=== PATIENT | female | born 1950 | race Caucasian/White ===

== ENCOUNTER 2021-11-16 20:49 | Inpatient (IN) | payer OTHER ==
[~2021-11-16] VITALS: Ht 167.6 cm; Wt 72.6 kg
[2021-11-16 20:49] VITALS: BP_SYST 98
--- NOTE | 2021-11-16 20:49 | NUR ---
Pt arrives via ALS, placed to ER bed 03, to gown, to monitor technician.
--- NOTE | 2021-11-16 20:50 | NUR ---
Pt from home with c/o SOB x 30 minutes FAN MAIL EDITOR with lethargy x 2 days. Pt pale in appearance, AAOx3, but drowsy. Pt states that she took her prescribed nightly dose of Gabapentin. Pt on home O2 at 2LPM/NC. VSS with paced rhythm per beside phototypesetting equipment monitor. Denies c/o C/P. Arrives with 18 GA PIV to LAC, placed per ALS FAN MAIL EDITOR.
--- NOTE | 2021-11-16 20:52 | NUR ---
Dr. Barber at bedside to assess pt.
--- NOTE | 2021-11-16 21:05 | NUR ---
Lab at bedside.
--- NOTE | 2021-11-16 21:10 | NUR ---
Pt to CT via stretcher in stable condition.
--- NOTE | 2021-11-16 21:20 | NUR ---
Pt returns from CT. VSS, drowsy but easily awakens.
[2021-11-16 21:32] LABS: BASOPHILS % (AUTO) 0.7 % (0.0-2.0); EOSINOPHILS # (AUTO) 0.2 K/uL (0.0-0.4); EOSINOPHILS % (AUTO) 3.2 % (0.0-4.0); HEMATOCRIT 28.5 % (36-48); LYMPHOCYTES # (AUTO) 0.6 K/uL (1.0-5.5); LYMPHOCYTES % (AUTO) 8.7 % (20.5-51.5); MEAN CORPUSCULAR HEMOGLOBIN 26 pg (27-31); MEAN CORPUSCULAR HGB CONC 31 % (32-36); MEAN CORPUSCULAR VOLUME 82 fL (79.0-98.0); MONOCYTES # (AUTO) 0.7 K/uL (0.0-1.0); MONOCYTES % (AUTO) 10.4 % (1.7-9.3); NEUTROPHILS # (AUTO) 4.9 K/uL (1.8-7.7); PLATELET COUNT (AUTO) 303 K/uL (130-430); RED BLOOD CELL COUNT(AUTO) 3.47 MIL/uL (4.2-6.2); RED CELL DISTRIBUTION WIDTH 18.6 % (9.0-15.0); WHITE BLOOD COUNT (AUTO) 6.4 K/uL (4.8-10.8)
[2021-11-16 21:42] LABS: ANION GAP 5 (5-15); CALCIUM 9.7 mg/dL (8.4-11.0); CHLORIDE 105 mmol/L (98-107); CREATININE 2.01 mg/dL (0.55-1.30); GLUCOSE 127 mg/dL (70-99); POTASSIUM 4.9 mmol/L (3.5-5.1); SODIUM SERUM 140 mmol/L (136-145); UREA NITROGEN, BLOOD 57 mg/dL (8-21)
[2021-11-16 21:48] LABS: ACETAMINOPHEN 9 ug/mL (1-30); ALANINE AMINOTRANSFERASE 29 U/L (12-78); ALBUMIN 2.8 g/dL (3.4-4.8); ASPARTATE AMINOTRANSFERASE 30 U/L (10-37); TOTAL BILIRUBIN 0.7 mg/dL (0.0-1.0)
[2021-11-16 21:53] LABS: ACETONE, SERUM NEGATIVE (NEGATIVE); ALCOHOL, BLOOD < 3 mg/dL (<10); C-REACTIVE PROTEIN QUANT 2.8 mg/dL (0-0.5)
--- NOTE | 2021-11-16 22:33 | NUR ---
RT at bedside to perform ABG.
[2021-11-17 00:30] LABS: BARBITURATE, URINE NEGATIVE (NEG <=200); BENZODIAZEPINE, URINE NEGATIVE (NEG <=150); CANNABINOID, URINE NEGATIVE (NEG <=50); COCAINE, URINE NEGATIVE (NEG <=150); METHAMPHETAMINES SCREEN,URINE NEGATIVE (NEG <=500); OPIATE, URINE NEGATIVE (NEG <=100); PHENCYCLIDINE SCREEN,URINE NEGATIVE (NEG <=25); UR TRICYCLIC ANTIDEPRESSANTS NEGATIVE (NEG <=300); URINE AMPHETAMINE NEGATIVE (NEG <=500); URINE METHADONE NEGATIVE (NEG <=200); URINE OXYCODONE SCREEN NEGATIVE (NEG <=100); URINE PROPOXYPHENE SCREEN NEGATIVE (NEG <=300)
[2021-11-17 00:36] LABS: BILIRUBIN,URINE NEGATIVE (NEGATIVE); BLOOD, URINE 3+ (NEGATIVE); CLARITY/URINE CLEAR (CLEAR); COLOR,URINE YELLOW (YELLOW); GLUCOSE,URINE NEGATIVE (NEGATIVE); KETONES,URINE NEGATIVE (NEGATIVE); LEUKOCYTE ESTERASE ,URINE 2+ (NEGATIVE); NITRITE, URINE NEGATIVE (NEGATIVE); PH,URINE 5.5 (5.0-8.0); PROTEIN URINE 2+ (NEGATIVE)
[2021-11-17 00:37] LABS: UROBILINOGEN,URINE 0.2 (0.2-1.0)
--- NOTE | 2021-11-17 00:45 | NUR ---
Pt noted to be bobbing head ~ 30 seconds while falling asleep. VSS, SPO2 98% on O2 at 2 LPM/NC. Dr. Carlson called to bedside. Further sepsis workup indicated. Blood Cx x 2 obtained and sent to lab prior to administering antibiotics.
--- NOTE | 2021-11-17 00:50 | NUR ---
Lab at bedside. Pt c/o nausea. Pt medicated with Zofran 4 mg IVP per HARDIK Carlson.
[2021-11-17] MEDS ORDERED: ONDANSETRON HCL 4 MG/2 ML VIAL ONE (01:02)
[2021-11-17 01:03] LABS: BACTERIA,URINE MODERATE /HPF (None Seen); MUCUS,URINE None Seen /LPF (None Seen); RBC,URINE 50-80 /HPF (0-3); WBC,URINE >100 /HPF (0-3)
[2021-11-17] MEDS ORDERED: ONDANSETRON HCL 4 MG/2 ML VIAL IVP ONE (01:15)
--- NOTE | 2021-11-17 01:29 | NUR ---
Pt actively vomiting. Dr. Carlson notified.
[2021-11-17] MEDS ORDERED: cefTRIAXone 1 GM IVPB PREMIX 50 ML IV ONE ×2 (01:30→21:34)
--- NOTE | 2021-11-17 02:30 | NUR ---
Pt resting quietly with occasional head bobbing motion. Pt easily awakens, AAOx3, denies c/o pain or discomfort. VSS, NAD.
--- NOTE | 2021-11-17 03:05 | NUR ---
Admit bed requested Patient will be admitted to care of Dr. Julio C Botello. Admitted to ICU unit. Diagnosis Sepsis, UTI, CHF Inpatient (Yes or No) Yes Observation (Yes or No) No Orientation concerns or request close to nursing station (Yes or No) Yes Covid Status Neg On vent or bipap No Isolation requirements No Needs a sitter No From Home (Yes or if No enter name of facility) Yes Requires Dialysis (Yes or No) No Med Rec Completed (Yes of No) Yes
--- NOTE | 2021-11-17 03:08 | NUR ---
Called ICU to notify of pt admit status. Not enough ICU staff for pt transfer at this time. thermostatic controls supervisor notified.
--- NOTE | 2021-11-17 04:00 | NUR ---
# 16 FR Oconnell catheter with use of sterile technique. Immediate return of 10 cc straw colored and turbid urine noted. Bedside drainage bag placed below level of bladder. Urine sample collected and sent to lab. Pt tolerated procedure fair. F/C inserted for strict U/O monitoring and ICU status.
--- NOTE | 2021-11-17 05:15 | NUR ---
Pt actively vomiting. Dr. Carlson made aware and at bedside to assess pt. Pt to be medicated with Reglan 10 mg IVP.
[2021-11-17] MEDS ORDERED: METOCLOPRAMIDE HCL 10 MG/2 ML VIAL ONE (05:23)
[2021-11-17] MEDS ORDERED: METOCLOPRAMIDE HCL 10 MG/2 ML VIAL IVP ONE (05:30)
--- NOTE | 2021-11-17 05:40 | NUR ---
Dr. Harman at bedside to assess pt.
[2021-11-17] MEDS ORDERED: NACL 0.9% 1,000 ML IV SCH (06:00)
--- NOTE | 2021-11-17 06:30 | NUR ---
Dr. Liang on phone with Dr. Harman.
--- NOTE | 2021-11-17 06:45 | NUR ---
Pt placed on BiPAP per RT. Settings: 03/28, rate 24.
--- NOTE | 2021-11-17 07:23 | NUR ---
Pt report given to oncoming shift.
--- NOTE | 2021-11-17 07:23 | NUR ---
rec rprt from [facility], assess pt bed 3, pt in bed, restless she is awake and alert. has bipap on sat max 97, will continue to monitor.
[2021-11-17] MEDS ORDERED: SPIR25TA6 PO (07:39)
[2021-11-17] MEDS ORDERED: BACL10TA PO (07:39)
[2021-11-17] MEDS ORDERED: TAMS-11 PO (07:39)
[2021-11-17] MEDS ORDERED: FURO-150 PO (07:39)
[2021-11-17] MEDS ORDERED: PRO40 PO (07:39)
[2021-11-17] MEDS ORDERED: LIP20 PO (07:39)
[2021-11-17] MEDS ORDERED: NEU300 PO (07:39)
[2021-11-17] MEDS ORDERED: AMIO100T4 PO (07:39)
[2021-11-17] MEDS ORDERED: METO25TA3 PO (07:39)
[2021-11-17] MEDS ORDERED: MECL-109 PO (07:39)
[2021-11-17] MEDS ORDERED: CHOL500052 PO (07:39)
[2021-11-17] MEDS ORDERED: CALC3.8S NS (07:39)
--- NOTE | 2021-11-17 07:39 | NUR ---
Medication reconciliation completed with information provided by pt. Any prior medication reconciliation on file was reviewed and corrected.
--- NOTE | 2021-11-17 07:40 | NUR ---
PT IS SCRATCHING BACK, REDNESS AND IRRITATION NOTED. CALL PLACED TO DR. SEARS
[2021-11-17] MEDS: DIPHENHYDRAMINE INJ 50 MG/ML VIAL IVP PRN (08:00)
[2021-11-17] MEDS ORDERED: LORazepam 2 MG/ML VIAL IVP PRN (09:45)
[2021-11-17] MEDS ORDERED: ONDANSETRON HCL 4 MG/2 ML VIAL IVP PRN (09:45)
[2021-11-17 10:26] VITALS: BP_SYST 105
--- NOTE | 2021-11-17 11:00 | NUR ---
DR. SEARS CALLED FOR DOWNGRADE TO TELE
--- NOTE | 2021-11-17 11:09 | NUR ---
PT PULLING OFF BIPAP, PER ER DR. EVANS OK TO CALL RT FOR DOWN GRADE 02. PT PLACED ON NC@3LPM, O2SAT 97%. PT TOLERATING WELL
--- NOTE | 2021-11-17 11:30 | NUR ---
Admit bed requested Patient will be admitted to care of . Admitted to TELE unit. Diagnosis UTI, CHF, SEPSIS Inpatient (Yes or No) YES Observation (Yes or No) NO Orientation concerns or request close to nursing station (Yes or No) YES Covid Status NEGATIVE On vent or bipap NO Isolation requirements NO Needs a sitter NO From Home (Yes or if No enter name of facility) HOME Requires Dialysis (Yes or No) NO Med Rec Completed (Yes of No) YES
--- NOTE | 2021-11-17 11:30 | NUR ---
[place] of care received, pt resting in bed, pt on 3L NC with O2 reading 96%, respirations even and unlabored, cap refill <3.
--- NOTE | 2021-11-17 11:30 | NUR ---
Note zully in EDM - 11/17/21 at 1209 by [email or web address] Admit bed requested Patient will be admitted to care of . Admitted to [] unit. Diagnosis [] Inpatient (Yes or No) [] Observation (Yes or No) [] Orientation concerns or request close to nursing station (Yes or No) [] Covid Status [] On vent or bipap [] Isolation requirements [] Needs a sitter [] From Home (Yes or if No enter name of facility) [] Requires Dialysis (Yes or No) [] Med Rec Completed (Yes of No) []
[2021-11-17] MEDS: LORazepam 2 MG/ML VIAL IVP PRN ×2 (11:33→22:25)
--- NOTE | 2021-11-17 11:40 | NUR ---
Admit bed requested Patient will be admitted to care of . Admitted to TELE unit. Diagnosis SEPSIS,UTI,CHF Inpatient (Yes or No) YES Observation (Yes or No) NO Orientation concerns or request close to nursing station (Yes or No) YES Covid Status NEG On vent or bipap NO Isolation requirements NO Needs a sitter NO From Home (Yes or if No enter name of facility) HOME Requires Dialysis (Yes or No) NO Med Rec Completed (Yes of No) YES
--- NOTE | 2021-11-17 11:43 | NUR ---
ECHO AT THE BEDSIDE
[2021-11-17] MEDS: ALBUTEROL SULFATE 0.083% 2.5 MG/3 ML VIAL.NEB INH SCH ×4 (12:09→23:26)
[2021-11-17] MEDS: IPRATROPIUM BROM 0.5 MG/2.5 ML VIAL.NEB (ATROVENT) INH SCH ×4 (12:09→23:26)
--- NOTE | 2021-11-17 12:30 | NUR ---
Patient will be admitted to care of Dr Thayer . Admitted to Tele unit. Will go to room 104B . Belongings list completed. Complete and up to date summary report printed. SBAR report to be given at bedside with opportunity for questions.
--- NOTE | 2021-11-17 13:23 | NUR ---
CONSULTATION PAGED REASON FOR CONSULTATION:CHF,SOB WAS CONSULT CALLED?Y PERSON WHO WAS NOTIFIED:VALERIANO CONSULTING PHYSICIAN:RAHUL OWENS [employer] DEPUTY SHERIFF SPECIALTY:INFECTIOUS DISEASE CIVIL DIVISION DEPUTY SHERIFF PHONE NUMBER:[phone] REQUESTING PHYSICIAN:LIZANDRO GARZON FACESHEET FAVED OVER
--- NOTE | 2021-11-17 13:31 | NUR ---
ADMISSION NOTE Received patient from ER via gurney. Patient admitted with diagnosis of sepsis and UTI . Patient oriented to hospital routine, call light, toileting and safety-patient verbalized understanding. Patient is is on 2L NC. Patient is AxO x3, oriented to self, situation and place. Oconnell catheter in place draining yellow urine to gravity. All needs met at this time, and safety checks made. Will continue to monitor.
[2021-11-17 13:46] VITALS: BP_SYST 119
[2021-11-17] MEDS: D5/0.45 NS 1,000 ML IV SCH (14:00)
[2021-11-17] MEDS: HEPARIN SODIUM,PORCINE 5,000 UNITS/ML VIAL SUBCUT SCH ×2 (14:34→22:27)
[2021-11-17 15:12] VITALS: BP_SYST 120
--- NOTE | 2021-11-17 17:01 | NUR ---
PATIENT IS A POOR HISTORIAN While completing patient's admission assessment, patient is revealed to be a poor historian and unable to answer most questions. Attempted to reach out to emergency contact, valeria Saab, for medical history but was unable to reach him.
--- NOTE | 2021-11-17 17:14 | NUR ---
SOFT RESTRAINTS PLACED Per Dr Yoselyn Botello's order, soft mitten bilateral wrist restraints placed. Patient is persistently scratching.
[2021-11-17 17:59] VITALS: BP_SYST 119
--- NOTE | 2021-11-17 18:33 | NUR ---
CLOSING NOTE Patient is resting in bed, soft mitten restraints in place. Patient continues to persistently scratch at her head and back. She has poor concentration and difficulty expressing her needs. Oconnell catheter is in place and draining yellow cloudy urine. IV is patent and running prescribed fluids. All needs met at this time, and safety checks made. Will endorse to cage shift manager nurse.
--- NOTE | 2021-11-17 19:00 | NUR ---
RECEIVED PT IN BE.AOX1, CONFUSED AND RESTLESS.ON 2 L NC.NOT IN RESPIRATORY DISTRESS NOTED. IV L AC G18, PATENT AND INTACT. BILATERAL MITTENS NOTED.BED ALARM ON.BED IN LOWEST POSITION.BEDSIDE TABLE AND CALL LIGHT ARE WITHIN REACH.
[2021-11-17 20:00] VITALS: BP_SYST 123
[2021-11-17] MEDS ORDERED: cefTRIAXone 1 GM in D5W 50 ML IV SCH (21:00)
--- NOTE | 2021-11-17 22:00 | NUR ---
PT IS RESTLESS AND TRYING TO GET OUT OF BED.ATIVAN 1 MG IV GIVEN.
[2021-11-18 00:07] VITALS: BP_SYST 108
[2021-11-18] MEDS: IPRATROPIUM BROM 0.5 MG/2.5 ML VIAL.NEB (ATROVENT) INH SCH ×3 (03:58→11:48)
[2021-11-18] MEDS: ALBUTEROL SULFATE 0.083% 2.5 MG/3 ML VIAL.NEB INH SCH ×3 (03:58→11:48)
--- NOTE | 2021-11-18 05:00 | NUR ---
PT PULLED OUT IV.
--- NOTE | 2021-11-18 05:30 | NUR ---
REINSERTED IV ON L HAND G22, WITH GOOD BLOOD RETURN NOTED, HOOKED IVF.
[2021-11-18] MEDS: D5/0.45 NS 1,000 ML IV SCH (05:42)
[2021-11-18] MEDS: HEPARIN SODIUM,PORCINE 5,000 UNITS/ML VIAL SUBCUT SCH ×2 (05:46→13:36)
[2021-11-18 06:33] LABS: BASOPHILS # (AUTO) 0.1 K/uL (0.0-0.2); BASOPHILS % (AUTO) 0.7 % (0.0-2.0); EOSINOPHILS % (AUTO) 0.2 % (0.0-4.0); HEMATOCRIT 29.7 % (36-48); HEMOGLOBIN 9.1 g/dL (12.0-16.0); LYMPHOCYTES # (AUTO) 0.5 K/uL (1.0-5.5); LYMPHOCYTES % (AUTO) 5.5 % (20.5-51.5); MEAN CORPUSCULAR HEMOGLOBIN 26 pg (27-31); MEAN CORPUSCULAR HGB CONC 31 % (32-36); MEAN CORPUSCULAR VOLUME 83 fL (79.0-98.0); MONOCYTES # (AUTO) 1.4 K/uL (0.0-1.0); MONOCYTES % (AUTO) 14.3 % (1.7-9.3); NEUTROPHILS # (AUTO) 7.7 K/uL (1.8-7.7); NEUTROPHILS % (AUTO) 79.3 % (40.0-70.0); PLATELET COUNT (AUTO) 357 K/uL (130-430); RED BLOOD CELL COUNT(AUTO) 3.57 MIL/uL (4.2-6.2); RED CELL DISTRIBUTION WIDTH 18.8 % (9.0-15.0); WHITE BLOOD COUNT (AUTO) 9.7 K/uL (4.8-10.8)
[2021-11-18 06:59] LABS: ALANINE AMINOTRANSFERASE 104 U/L (12-78); ALBUMIN 2.9 g/dL (3.4-4.8); ANION GAP 17 (5-15); CALCIUM 9.9 mg/dL (8.4-11.0); CHLORIDE 107 mmol/L (98-107); CREATININE 2.59 mg/dL (0.55-1.30); GLUCOSE 91 mg/dL (70-99); PHOSPHORUS 5.1 mg/dL (2.7-4.5); SODIUM SERUM 146 mmol/L (136-145); TOTAL BILIRUBIN 1.2 mg/dL (0.0-1.0); UREA NITROGEN, BLOOD 63 mg/dL (8-21)
[2021-11-18] MEDS: DIPHENHYDRAMINE INJ 50 MG/ML VIAL IVP PRN ×2 (07:16→14:23)
--- NOTE | 2021-11-18 07:30 | NUR ---
OPENING NOTE Patient is in bed resting with eyes closed. Nasal cannula in place on 2L. Oconnell catheter in place draining yellow urine. IV is patent and running prescribed fluids. Patient is calm and no longer scratching at her skin, bilateral mittens are off. All needs met at this time, and safety checks made. Will continue to monitor.
[2021-11-18 08:00] VITALS: BP_SYST 114
--- NOTE | 2021-11-18 08:33 | NUR ---
CRITICAL LAB Lactic acid 7.7. Reported to Dr Botello at 0828. No new orders at this time.
[2021-11-18 08:35] LABS: ASPARTATE AMINOTRANSFERASE 218 U/L (10-37)
[2021-11-18 08:46] LABS: C-REACTIVE PROTEIN QUANT 4.3 mg/dL (0-0.5)
[2021-11-18 09:38] LABS: ERYTHROCYTE SEDIMENTATION RATE 32 MM/HR (0-20)
[2021-11-18] MEDS ORDERED: CARVEDILOL 6.25 MG TABLET (COREG) PO ONE (10:00)
[2021-11-18 10:30] VITALS: BP_SYST 92
--- NOTE | 2021-11-18 11:13 | NUR ---
CONSULTATION PAGED/CALLED Reason for Consultation: [] TRANSAMINITIS Person Who was Notified: [] ROBERT Consulting Physician: [] DR DARLING, A Emu Farm Worker Specialty: [] GI Ordering Physician: [] DR SEARS
--- NOTE | 2021-11-18 11:22 | NUR ---
CONSULTATION PAGED/CALLED Reason for Consultation: [] SEPSIS Person Who was Notified: [] MARKUS Consulting Physician: [] DR MARZENA HAIRSTON Dyer And Washer Specialty: [] ID Ordering Physician: [] DR SEARS
--- NOTE | 2021-11-18 11:23 | NUR ---
CONSULTATION PAGED/CALLED Reason for Consultation: [] JAMES Person Who was Notified: [] MARKUS Consulting Physician: [] DR TAI Manager Army Specialty: [] MARKETING OPERATIONS CONSULTANT Ordering Physician: [] DR SEARS
--- NOTE | 2021-11-18 11:25 | NUR ---
CONSULTATION PAGED/CALLED Reason for Consultation: [] AMS Person Who was Notified: [] DAYANA Consulting Physician: [] DR Jesse HENSLEY Oncology Rep Specialty: [] NEURO Ordering Physician: [] DR Viktor SEARS
[2021-11-18 11:36] VITALS: BP_SYST 121
--- NOTE | 2021-11-18 14:00 | NUR ---
Wound Evaluation: Late note for 11/18/2021 at 1400 secondary to patient care. Wound Consult ordered for Low Musa Score. Patient evaluated for a low Musa score of 9. Patient was awake, alert, confused, and received in a Ria Bed with an Isoflex MARCUS mattress. Patient needs to be turned in bed. Skin assessment: 1. Sacral area: Blanchable redness, present on admission. Recommend: Cleanse involved area with mild soap and water. Pat dry. Apply Hydraguard moisture barrier cream to involved area. Cover site with Sacral foam dressing. Perform site care daily, and as needed for dressing soiling or dislodgment. 2. Left Lower Extremity: Multiple dry black scabs, present on admission. 3. Right Lower Extremity: Multiple dry black scabs, present on admission. Recommend: No dressings needed. Continue to monitor sites every shift. 4. Left heel: Blanchable redness, present on admission. 5. Right heel: Blanchable redness, present on admission. Recommend: Elevate, offload and float bilateral heels with 1 pillow lengthwise under each extremity at all times. Recommend: Reposition patient side to side only every 2 hours with pillow support. Elevate, off-load and float bilateral heels with pillows. Offload pressure areas with pillows for pressure re-distribution. Perform skin care and monitor skin integrity Q shift. Use Hydraguard moisture barrier cream on moisture susceptible areas QID and PRN for soiling. Initiate low air-loss therapy.
[2021-11-18] MEDS ORDERED: EPINEPHrine JECT 0.1 MG/ML SYR IVP ONE (15:00)
[2021-11-18] MEDS ORDERED: DEXTROSE 50% JECT 50 ML DISP.SYRIN IVP ONE (15:00)
[2021-11-18] MEDS ORDERED: CALCIUM CHLORIDE 1 GM/10 ML DISP.SYRIN (14 mEq Ca++/SYR) IVP ONE (15:00)
--- NOTE | 2021-11-18 15:01 | NUR ---
NOTIFIED SISTER RE-CHANGE OF CONDITION UNABLE TO CONTACT THE [facility] WHO IS ON EMERGENCY CONTACT. SISTER MIREILLE CASE WAS NOTIFIED. SPOKE TO SISTER MIREILLE CASE AND MADE AWARE THAT [facility] WAS CALLED BECAUSE PATIENT STOP BREATHING AND NO PULSE RATE, SHE ALSO MADE AWARE THAT THEY ARE STILL DOING THE [facility] TO REVIVE THE PATIENT. DR SALAZAR EMERGENCY ROOM DOCTOR SPOKE TO MIREILLE AND MADE AWARE THAT PATIENT IS NOT DOING GOOD. MIREILLE WILL CALL ROSALINA THE NEPHEW WHO IS ON THE EMERGENCY CONTACT.
--- NOTE | 2021-11-18 15:14 | NUR ---
PATIENT AT 151 PATIENT AT 1511, NOTIFIED SISTER MIREILLE CASE MADE AWARE THAT PATIENT AT 1511. MIREILLE WILL CALL BACK TO GIVE THE MORTUARY.
--- NOTE | 2021-11-18 15:44 | NUR ---
[facility] Spoke to Deisi at [facility]. Reference # [id number]
--- NOTE | 2021-11-18 16:07 | NUR ---
SPOKE TO [facility] Spoke to Anam at [facility] and reported the patient's expiration.
--- NOTE | 2021-11-18 18:26 | NUR ---
1443 [facility] CALLED, [facility]C ACHIEVED @1451. PT INTUBATED 1449, 1503 PT CODED AGAIN. 151. Addendum: 11/18/21 at 1827 by Lizabeth Stafford RT Amended: Links added.
--- NOTE | 2021-11-18 19:49 | NUR ---
FOLLOW UP WITH [facility] [employer] Spoke to Chapito with the [facility]. Confirmed that patient is being picked up tonight, they estimated by 2099.
--- NOTE | 2021-11-18 20:20 | NUR ---
PTS BODY AND PTS BELONGINGS RELEASED TO [facility], [facility]SE [facility] WITNESSED .
[2021-11-18] MEDS ORDERED: CARVEDILOL 6.25 MG TABLET (COREG) PO SCH (21:00)
[2021-11-18] MEDS ORDERED: ATORVASTATIN 20 MG TABLET PO SCH (21:00)
== END 2021-11-18 15:12 | DRG 871 ==
LOC: SED 20:49 → SIC 11-17 02:58 → STU 11-17 11:08
PROVIDERS: ADMIT Preventive Medicine Preventive Medicine/Occupational Environmental Medicine; ATTEND Preventive Medicine Preventive Medicine/Occupational Environmental Medicine
PROC: 5A09357 Assistance with Respiratory Ventilation, Less than 24 Consecutive Hours, Continuous Positive Airway Pressure (ICD-10-PCS; 2021-11-17)
PROC: 5A12012 Performance of Cardiac Output, Single, Manual (ICD-10-PCS; principal; 2021-11-18)
PROC: 0BH17EZ Insertion of Endotracheal Airway into Trachea, Via Natural or Artificial Opening (ICD-10-PCS; 2021-11-18)
DX: A41.9 Sepsis, unspecified organism (principal); G93.41 Metabolic encephalopathy; J96.21 Acute and chronic respiratory failure with hypoxia; E87.0 Hyperosmolality and hypernatremia; N39.0 Urinary tract infection, site not specified; N17.9 Acute kidney failure, unspecified; I13.0 Hypertensive heart and chronic kidney disease with heart failure and stage 1 through stage 4 chronic kidney disease, or unspecified chronic kidney disease; I42.8 Other cardiomyopathies; I42.0 Dilated cardiomyopathy; I46.9 Cardiac arrest, cause unspecified; B96.89 Other specified bacterial agents as the cause of diseases classified elsewhere; D64.9 Anemia, unspecified; E83.39 Other disorders of phosphorus metabolism; E78.5 Hyperlipidemia, unspecified; E83.42 Hypomagnesemia; I25.10 Atherosclerotic heart disease of native coronary artery without angina pectoris; I49.5 Sick sinus syndrome; N18.9 Chronic kidney disease, unspecified; I50.9 Heart failure, unspecified; R73.9 Hyperglycemia, unspecified; E66.01 Morbid (severe) obesity due to excess calories; N20.0 Calculus of kidney; G40.909 Epilepsy, unspecified, not intractable, without status epilepticus; E88.09 Other disorders of plasma-protein metabolism, not elsewhere classified; Z20.822 Contact with and (suspected) exposure to COVID-19; I08.1 Rheumatic disorders of both mitral and tricuspid valves; I27.21 Secondary pulmonary arterial hypertension; R74.01 Elevation of levels of liver transaminase levels; Z95.0 Presence of cardiac pacemaker; Z87.442 Personal history of urinary calculi; Z87.440 Personal history of urinary (tract) infections; Z88.1 Allergy status to other antibiotic agents; Z68.25 Body mass index [BMI] 25.0-25.9, adult
CPT/HCPCS: 36415; 36600; 70450-TC; 71045; 76376; 76770; 80053; 80307; 81000; 82009; 82140; 82550; 82803-TC; 82962; 83605; 83735; 83880; 84100; 85025; 85651-TC; 86140; 87040; 87086; 92950; 93005; 93306; 94640; 94660; 94760; 96365; 96375; 99285; G0378; G0480; G0481; G0482; J0171; J0696; J1200; J1644; J2060; J2405; J2765; J7060; J7613